=== PATIENT | female | born 1985 | race Caucasian/White ===

== ENCOUNTER 2025-03-05 12:10 | Emergency (ER) | payer SELFPAY ==
[2025-03-05 12:13] VITALS: BP 145/92
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
[2025-03-05] MEDS: ZOFRAN ODT (ORALLY DISINTEGRATING) 4 MG PO (13:46)
[2025-03-05] MEDS: TORADOL 30 MG IM (13:47)
== END 2025-03-05 13:56 | disposition home or self-care (01) ==
LOC: EMR 12:10
PROVIDERS: EMERGENCY PHYSICIAN Emergency Medicine; FAMILY PHYSICIAN Nurse Practitioner Family
DX: S06.0X0A Concussion without loss of consciousness, initial encounter (principal); W20.8XXA Other cause of strike by thrown, projected or falling object, initial encounter; J45.909 Unspecified asthma, uncomplicated
CPT/HCPCS: 99284; 96372; 70450